=== PATIENT | female | born 1950 | race Caucasian/White ===

== ENCOUNTER → 2018-12-29 | Outpatient (CLI) | payer OTHER ==
[~2018-12-29] MED LIST: ATOR10TA65 PO; HCTZ PO; HYDR-4240 PO; HYDR12.561 PO; KET10 PO; LIPITOR PO; LOR5/325 PO; METF-1 PO
--- NOTE | 2019-01-01 14:24 | RADIOLOGY IMAGING REPORT ---
FACILITY: [facility] PATIENT NAME: JOSE M GALLEGO : [id number] MR: [id number] V: [id number] EXAM DATE: [id number] ORDERING PHYSICIAN: GIBRAN VANEGAS TECHNOLOGIST: Leta Llanes PROCEDURE:BILATERAL DIGITAL SCREENING MAMMOGRAM WITH CAD ASSISTED INTERPRETATION & 3D TOMOSYNTHESIS COMPARISON:Prior mammogram 08/05/2016 & 05/29/2015. INDICATIONS:SCREENING FINDINGS: The breast tissue is predominantly fatty. There is no suspicious mass, calcification, or architectural distortion. Stable calcifications of both breasts are seen. DIAGNOSTIC CATEGORY 2--BENIGN FINDING. RECOMMENDATIONS: ROUTINE MAMMOGRAM AND CLINICAL EVALUATION. IMPRESSION: BIRADS 2: Benign finding. No mammographic evidence for malignancy. Dictated by: Tadeo Llanes M.D. on 01/01/2019 at 8:22 Transcribed by: HELIO on 01/01/2019 at 8:56 Approved by: Tadeo Llanes M.D. on 01/01/2019 at 14:24 [facility]
== END ==
LOC: MAMO 01:24
PROVIDERS: ATTEND Nurse Practitioner Family
DX: Z12.31 Encounter for screening mammogram for malignant neoplasm of breast (principal); Z80.3 Family history of malignant neoplasm of breast
CPT/HCPCS: 77063; 77067

== ENCOUNTER → 2019-02-05 | Outpatient (CLI) | payer OTHER ==
--- NOTE | 2019-02-05 12:59 | RADIOLOGY IMAGING REPORT ---
[place]AC[place] [facility] [place]IENT NAME: Sharmin Koch : 1950 MR: [id number] V: [id number] EXAM DATE: ORDERING PHYSICIAN: GIBRAN VANEGAS TECHNOLOGIST: Location: [facility] [place] Patient: Sharmin Koch : 1950 Visit/Account:[id number] Date of Sevice: 02/05/2019 ELBOW 2 VIEW RIGHT HISTORY: Right elbow pain ADDITIONAL HISTORY: None. COMPARISON: None. FINDINGS: 2 views were obtained of the right elbow. There is no evidence of acute fracture or dislocation. Th ere is mild narrowing of the articulation of the proximal ulna and trochlea and osteophytes project o ff the coronoid process consistent with degenerative disease. Radiocapitellar joint is within normal limits. There are no osteophytes. Bones are mildly osteopenic. There are no lytic or sclerotic lesions. IMPRESSION: 1. No evidence of acute osseous abnormality. 2. 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 Report Dictated By: Nohemi Gray MD at 02/05/2019 12:52 PM Report E-Signed By: Nohemi Gray MD at 02/05/2019 12:55 PM WSN:[id number]
== END ==
LOC: RAD 11:10
PROVIDERS: ATTEND Nurse Practitioner Family
DX: M19.021 Primary osteoarthritis, right elbow (principal)